=== PATIENT | female | born 1995 | race Caucasian/White ===

== ENCOUNTER → 2022-03-12 | Outpatient (CLI) | payer OTHER ==
[~2022-03-12] MED LIST: COLACE 100MG C100 MG PO; DOCUSATE SODIU250 MG PO; HYDROCODONE-AC1 EACH PO; IBUPROFEN600 MG PO; SUBUTEX 8 MG TAB8 MG PO; ZOFRAN ODT 4 MG4 MG PO
== END ==
LOC: GENOP 05:33
DX: O32.1XX0 Maternal care for breech presentation, not applicable or unspecified (principal); Z3A.36 36 weeks gestation of pregnancy
CPT/HCPCS: 76815; 81001; 96360; 96361; 96372; 96374; J2405; J3105

== ENCOUNTER 2022-03-14 21:24 | Inpatient (IN) | payer OTHER ==
[~2022-03-14] VITALS: Ht 165.1 cm; Wt 74.4 kg
[~2022-03-14 21:24] MED LIST changes: -DOCUSATE SODIU250 MG PO; -HYDROCODONE-AC1 EACH PO; -SUBUTEX 8 MG TAB8 MG PO; -ZOFRAN ODT 4 MG4 MG PO
[2022-03-14 22:05] LABS: HEMOGLOBIN 11.8 gm/dl (12.3-15.3); RED BLOOD COUNT 3.88 M/UL (4.00-5.10); WHITE BLOOD COUNT 14.4 K/UL (4.5-11.0)
[2022-03-15] MEDS ORDERED: SUBUTEX 8 MG TAB8 MG PO (00:25)
[2022-03-15] MEDS ORDERED: ZOFRAN ODT 4 MG4 MG PO (00:26)
[2022-03-15 04:45] LABS: HEMOGLOBIN 9.9 gm/dl (12.3-15.3)
[2022-03-17] MEDS ORDERED: DOCUSATE SODIU250 MG PO (11:19)
[2022-03-17] MEDS ORDERED: HYDROCODONE-AC1 EACH PO (11:19)
[2022-03-17] MEDS ORDERED: IBUPROFEN600 MG PO (11:19)
== END 2022-03-17 12:56 | disposition home or self-care (01) | DRG 787 ==
LOC: GENOP 21:24 → OB 21:50
PROVIDERS: ADMIT Obstetrics & Gynecology
PROC: 4A1HXCZ Monitoring of Products of Conception, Cardiac Rate, External Approach (ICD-10-PCS; 2022-03-14)
PROC: 3E0234Z Introduction of Serum, Toxoid and Vaccine into Muscle, Percutaneous Approach (ICD-10-PCS; 2022-03-14)
PROC: 10D00Z1 Extraction of Products of Conception, Low, Open Approach (ICD-10-PCS; principal; 2022-03-14 21:11)
DX: O32.1XX0 Maternal care for breech presentation, not applicable or unspecified (principal); O99.324 Drug use complicating childbirth; F11.20 Opioid dependence, uncomplicated; Z3A.38 38 weeks gestation of pregnancy; Z37.0 Single live birth; Z20.822 Contact with and (suspected) exposure to COVID-19; O99.334 Smoking (tobacco) complicating childbirth; F17.210 Nicotine dependence, cigarettes, uncomplicated; H10.9 Unspecified conjunctivitis; O90.89 Other complications of the puerperium, not elsewhere classified; O99.344 Other mental disorders complicating childbirth; F32.A Depression, unspecified; Z28.310 Unvaccinated for COVID-19; Z23 Encounter for immunization
CPT/HCPCS: 36415; 80307; 81001; 82800; 85014; 85018; 85025; 85461; 86850; 86900; 86901; 90715; C9113; J0690; J1170; J1885; J2550; J2590; J2704; J2790